=== PATIENT | female | born 1990 | race Caucasian/White ===

== ENCOUNTER 2017-07-19 10:03 | Emergency (ER) | payer SELFPAY ==
[2017-07-19 10:18] VITALS: TEMP 98.1; BMI 32.2
--- NOTE | 2017-07-19 10:40 | PDOC ---
Attending Attestation - Resident Resident Name: Deni Black - HPI HPI: 07/19/17 11:10 Pt presents to the ED complaining of a moderate amount of vaginal bleeding and passing clots. Also complaining of crampy pelvic pain. Denies heavy bleeding, urinary complaints or fever. Her last menstrual period was 5. - Physicial Exam PE: 07/19/17 11:12 Agree with resident exam. PAtient is alert and oriented and in no acute distress. Abdomen is non tender. - Medical Decision Making 07/19/17 11:12 Pt presents to the ED complaining of vaginal bleeding. Differential diagnosis includes menstruation, threatened ab, miscarriage, ectopic . will check CBC to rule out anemia and U preg. will likely discharge home if no anemia and U preg is negative.
--- NOTE | 2017-07-19 11:11 | PDOC ---
History of Present Illness - General Chief Complaint: Vaginal Bleeding Stated Complaint: Vaginal Bleeding Time Seen by Provider: 07/19/17 10:24 History Source: Patient, Family Exam Limitations: No Limitations - History of Present Illness Initial Comments: 07/19/17 11:44 26F with copper IUD placement 3 years ago, LMP on June 14 presents to the ED worrying she might be after passing multiple large clots yesterday and this morning and complaining of lower abdominal pain. Denies dysuria, nausea, vomiting. Past History - Past Medical History Allergies/Adverse Reactions: Allergies Allergy/AdvReac Type Severity Reaction Status Date / Time No Known Allergies Allergy Verified 07/19/17 10:15 Home Medications: Ambulatory Orders NK [No Known Home Medication] 07/19/17 Asthma: No Cancer: No Cardiac Disorders: No COPD: No DVT: No Diabetes: No HTN: No Seizures: No Thyroid Disease: No - Surgical History Cholecystectomy: Yes - Reproductive History Is Patient Now?: No (#): 3 Para: 3 - Suicide/Smoking/Psychosocial Hx Smoking History: Never smoked Have you smoked in the past 12 months: No Information on smoking cessation initiated: No Hx Alcohol Use: No Drug/Substance Use Hx: No Substance Use Type: None Hx Substance Use Treatment: No Review of Systems - Review of Systems Able to Perform ROS?: Yes Is the patient limited Vietnamese proficient: Yes Constitutional: No: Symptoms Reported HEENTM: No: Symptoms Reported Respiratory: No: Symptoms reported Cardiac (ROS): No: Symptoms Reported ABD/GI: Yes: Symptoms Reported, See HPI : No: Symptoms Reported Integumentary: No: Symptoms Reported Neurological: No: Symptoms reported All Other Systems: Reviewed and Negative *Physical Exam - Vital Signs Last Vital Signs Temp Pulse Resp BP Pulse Ox 98.1 F 76 18 119/72 100 07/19/17 10:15 07/19/17 10:15 07/19/17 10:15 07/19/17 10:15 07/19/17 10:15 - Physical Exam General Appearance: Yes: Nourished, Appropriately Dressed. No: Apparent Distress HEENT: positive: EOMI, RENÉE, Normal ENT Inspection Respiratory/Chest: positive: Lungs Clear, Normal Breath Sounds. negative: Chest Tender, Respiratory Distress Cardiovascular: positive: Regular Rhythm, Regular Rate, S1, S2 Female Pelvic Exam: positive: normal external exam, other (5mm tail of IUD protruding from cervical os). negative: cervical os closed Gastrointestinal/Abdominal: positive: Normal Bowel Sounds, Tender (LR and LLQ), Flat, Soft, Decreased BS Musculoskeletal: positive: Normal Inspection. negative: CVA Tenderness Extremity: positive: Normal Capillary Refill, Normal Inspection, Normal Range of Motion Neurologic: positive: Fully Oriented, Alert, Normal Mood/Affect, Normal Response , Motor Strength / ED Treatment Course - LABORATORY CBC & Chemistry Diagram: 07/19/17 10:40 07/19/17 10:40 Medical Decision Making - Medical Decision Making 07/19/17 11:58 26F with copper IUD presents with discharge of clots and abdominal pain. Will get basic labs and test. 07/19/17 14:09 Real time examination of the pelvis utilizing both the transabdominal and transvaginal probes demonstrates the following: The uterus is normal in size measuring 8.2 x 6.1 x 4.8 cm. No uterine masses are seen. There is an IUD within the endometrial cavity, however, it is largely within the lower uterine segment. The endometrium is thickened measuring 1.6 cm and there is an ill- defined fluid collection which could represent an early gestational sac. Correlation with serial beta subunit hCG levels and follow-up ultrasonography is now recommended. The ovaries are normal in size and texture with a right ovarian cyst measuring 1.4 x1.3x1.1cm 07/19/17 14:12 Beta hcg pending 07/19/17 15:36 Dr. Gomez consulted. Updated patient who would like to try and continue the . Will discharge with recommendations *DC/Admit/Observation/Transfer Diagnosis at time of Disposition: IUD failure, - Discharge Dispostion Disposition: HOME Condition at time of disposition: Improved Decision to Admit order: No - Referrals Referrals: Diamond Gifford MD [Primary Care Provider] - Dillon Gomez MD [Staff Physician] - - Patient Instructions Printed Discharge Instructions: DI for Intrauterine Device Removal Additional Instructions: Come back to your doctor, Dr. Moody in exactly 2 days to repeat enzymes and ultrasound. Take vitamins until then. It is very important that you follow up in two days. If you can't meet with either Drs. Moody or Patricia come back to ER. Come back also if you feel pain in your abdomen, discharge, bleeding, weakness or fever. - Post Discharge Activity
[2017-07-19 11:55] LABS: BASO % 0.4 % (0-2.0); EOS % 0.8 % (0-4.5); HEMATOCRIT 41.3 % (32.4-45.2); HEMOGLOBIN 14.2 GM/dL (10.7-15.3); LYMPH % 28.5 % (8-40); MCH 29.8 pg (25.7-33.7); MCHC 34.4 g/dl (32.0-36.0); MEAN CELL VOLUME 86.6 fl (80-96); MEAN PLT VOLUME 9.6 fl (7.5-11.1); MONO % 6.8 % (3.8-10.2); NEUT % 63.5 % (42.8-82.8); PLATELET COUNT 210 K/MM3 (134-434); RBC 4.77 M/mm3 (3.60-5.2); RDW 13.8 % (11.6-15.6); WHITE BLOOD COUNT 6.4 K/mm3 (4.0-10.0)
[2017-07-19 12:07] LABS: HCG,QUALITATIVE URINE POSITIVE
[2017-07-19 12:12] LABS: URINE APPEARANCE CLEAR; URINE BILIRUBIN NEGATIVE (<2.0 mg/dL); URINE BLOOD NEGATIVE (NEGATIVE); URINE COLOR LTYELLOW; URINE GLUCOSE (UA) NEGATIVE (NEGATIVE); URINE KETONE NEGATIVE (NEGATIVE); URINE LEUK ESTERASE NEGATIVE (NEGATIVE); URINE NITRITE NEGATIVE (NEGATIVE); URINE PROTEIN NEGATIVE (NEGATIVE); URINE UROBILINOGEN NEGATIVE mg/dL (0.2-1.0)
[2017-07-19 13:03] LABS: ALBUMIN 3.8 g/dl (3.4-5.0); ANION GAP 9 (8-16); BILIRUBIN,TOTAL 0.4 mg/dL (0.2-1.0); BLOOD UREA NITROGEN 11 mg/dL (7-18); CALCIUM 8.6 mg/dL (8.5-10.1); CHLORIDE 106 mmol/L (98-107); CO2 22 mmol/L (21-32); CREATININE 0.6 mg/dL (0.55-1.02); GLUCOSE,RANDOM 85 mg/dL (74-106); POTASSIUM 3.9 mmol/L (3.5-5.1); SGOT/AST 20 U/L (15-37); SGPT/ALT 40 U/L (12-78); SODIUM 137 mmol/L (136-145); TOT PROT 7.7 g/dl (6.4-8.2)
[2017-07-19 13:04] LABS: ALK PHOS 102 U/L (45-117)
[2017-07-19 16:32] VITALS: BP 115/60; PULSE 69
== END 2017-07-19 16:31 | disposition home or self-care (01) ==
LOC: JER 10:03
DX: O99.89 Other specified diseases and conditions complicating pregnancy, childbirth and the puerperium (principal); T83.89XA Other specified complication of genitourinary prosthetic devices, implants and grafts, initial encounter; Z3A.01 Less than 8 weeks gestation of pregnancy
CPT/HCPCS: 36415; 76817-TC; 76856-TC; 80053; 81003; 84702; 84703; 85025; 87491; 87591; 99285-25

== ENCOUNTER 2017-08-23 13:37 | Emergency (ER) | payer OTHER ==
[2017-08-23 13:47] VITALS: BP 124/76; PULSE 78; TEMP 98.3; BMI 31.2
--- NOTE | 2017-08-23 14:04 | PDOC ---
Attending Attestation - Resident Resident Name: Tatyana Carmona - HPI HPI: 08/23/17 16:14 pt presents to the eD complaining of vaginal bleeding, passing clots. Patient is 8 weeks by dates, with IUD in place. Seen by me in the ED on 07/19 - -had no IUP with a BHCG of 1000. Case was discussed with Dr. Nicole who recommended discharging her home with follow up in 2 days, since this was a desired . Patient returned to the ED on 08/09 with BHCG of 23,000. Still no IUP found on repeat US--only gestational sac. Patient was again discharged home and told to follow up with ob. Patient reports that she saw her OB two weeks ago, who did not identify a clear IUP. Patient returns today complaining of two days of heavy vaginal bleeding and severe pelvic cramping. - Physicial Exam PE: 08/23/17 16:18 Agree with resident exam. Patient is alert and in no acute distress. Abdomen is soft, non distended. Mild suprapubic tenderness. No IUP on transabdominal US , but no free pelvic fluid and negative FAST exam. Moderate blood in the vaginal vault without clots. Os closed. No adnexal tenderness. - Medical Decision Making 08/23/17 16:20 Pt presents to the ED complaining of pelvic pain. Concern for completed AB vs ectopic , given her last BHCG level and the fact that no IUP has been identified during this . PAtient is normotensive and with minimal pain. Will check labs and check transvaginal US. Will discuss case with Dr. Nicole.
[2017-08-23] MEDS ORDERED: ACETAMINOPHEN 500 MG TABLET (FP) PO ONE (15:09)
[2017-08-23] MEDS ORDERED: ACETAMINOPHEN 325 MG TABLET (FP) ONE (15:13)
[2017-08-23 15:46] LABS: BASO % 0.6 % (0-2.0); EOS % 0.7 % (0-4.5); HEMATOCRIT 39.9 % (32.4-45.2); HEMOGLOBIN 13.8 GM/dL (10.7-15.3); LYMPH % 18.9 % (8-40); MCH 29.8 pg (25.7-33.7); MCHC 34.5 g/dl (32.0-36.0); MEAN CELL VOLUME 86.4 fl (80-96); MEAN PLT VOLUME 9.2 fl (7.5-11.1); MONO % 5.1 % (3.8-10.2); NEUT % 74.7 % (42.8-82.8); PLATELET COUNT 216 K/MM3 (134-434); RBC 4.61 M/mm3 (3.60-5.2); RDW 13.3 % (11.6-15.6); WHITE BLOOD COUNT 10.7 K/mm3 (4.0-10.0)
--- NOTE | 2017-08-23 16:09 | PDOC ---
History of Present Illness - General Chief Complaint: Vaginal Bleeding Stated Complaint: VAGINAL BLEEDING (8 WKS ) Time Seen by Provider: 08/23/17 13:56 - History of Present Illness Initial Comments: 26yo F with no significant past medical history presenting to the ED with vaginal bleeding. Patient reports that she is currently six weeks . Amount of blood has been significant as she has used 9 pads for each of the past two days and she has noticed clots. She also endorses suprapubic pain and dysuria. One episode of diarrhea yesterday. Patient was last seen in the ED on for vaginal bleeding. Transvaginal ultrasound at that time did not confirm an intrauterine . Patient followed up with her cash accountant, Dr. Gomez, after that ED visit. Denies fevers, chills, chest pain, shortness of breath, nausea, or vomiting. 08/23/17 16:00 Past History - Past Medical History Allergies/Adverse Reactions: Allergies Allergy/AdvReac Type Severity Reaction Status Date / Time No Known Allergies Allergy Verified 08/23/17 13:47 Home Medications: Ambulatory Orders Cephalexin [Keflex] 500 mg PO Q6H #20 capsule 08/09/17 Asthma: No Cancer: No Cardiac Disorders: No COPD: No DVT: No Diabetes: No HTN: No Seizures: No Thyroid Disease: No - Surgical History Cholecystectomy: Yes - Reproductive History Is Patient Now?: Yes (#): 3 Para: 3 - Suicide/Smoking/Psychosocial Hx Smoking History: Never smoked Have you smoked in the past 12 months: No Information on smoking cessation initiated: No Hx Alcohol Use: No Drug/Substance Use Hx: No Substance Use Type: None Hx Substance Use Treatment: No Review of Systems - Review of Systems Comments:: Constitutional: no fever, no chills Cardiovascular: no chest pain, no palpitations Respiratory: no cough, no shortness of breath Gastrointestinal: positive for diarrhea, no abdominal pain, no nausea, no vomiting, no constipation Genitourinary: positive for dysuria, no frequency Neurologic: no headache, no dizziness *Physical Exam - Vital Signs Last Vital Signs Temp Pulse Resp BP Pulse Ox 98.3 F 78 17 124/76 100 08/23/17 13:44 08/23/17 13:44 08/23/17 13:44 08/23/17 13:44 08/23/17 13:44 - Physical Exam Comments: General: Awake, alert, and fully oriented, in no acute distress Head: No signs of trauma Eyes: EOMI, sclera anicteric ENT: moist mucus membranes, Neck: Normal ROM, supple, no lymphadenopathy, JVD, or masses Lungs: Lungs clear, Normal breath sounds Cardio: Regular rhythm, S1 and S2 present, no murmurs, rubs, or gallops Abdomen: Tender to palpation in the suprapubic area, Soft, normal bowel sounds. No guarding, no rebound, no masses Extremities: Normal range of motion, No cords or tenderness SKIN: Warm, Dry, normal turgor, no rashes or lesions noted Neurologic: Cranial nerves II through XII grossly intact. Normal speech ED Treatment Course - LABORATORY CBC & Chemistry Diagram: 08/23/17 15:15 08/23/17 15:15 - ADDITIONAL ORDERS Additional order review: 08/23/17 15:15 RBC 4.61 MCV 86.4 MCHC 34.5 RDW 13.3 MPV 9.2 Neutrophils % 74.7 D Lymphocytes % 18.9 D Monocytes % 5.1 Eosinophils % 0.7 Basophils % 0.6 - RADIOLOGY Radiology Studies Ordered: Category Date Time Status TRANSVAGINAL US PREG [US] Stat Ultrasound 08/23/17 15:53 Ordered - Medications Given in the ED: ED Medications Discontinued Medications Generic Name Dose Route Start Last Admin Trade Name Andiq PRN Reason Stop Dose Admin Acetaminophen 1,000 mg 08/23/17 15:09 08/23/17 15:15 Tylenol - PO 08/23/17 15:10 1,000 mg ONCE ONE Administration Medical Decision Making - Medical Decision Making 26yo currently 6 weeks patient presenting to the ED with reported significant amount of vaginal bleeding. Differential includes threatened , ectopic , subchorionic hemorrhage. Workup will included CBC, CMP, b-hcg, transvaginal ultrasound, pelvic exam. Tylenol 1000 po for pain. Type and Screen from previous visit O positive. Vital Signs Temp Pulse Resp BP Pulse Ox 98.3 F 78 17 124/76 100 08/23/17 13:44 08/23/17 13:44 08/23/17 13:44 08/23/17 13:44 08/23/17 13:44 08/23/17 16:04 Bedside Ultrasound: IUP not visualized. No free fluid in the abdomen Pelvic exam: blood in the vault, no products of conception or lesions, Cervix is closed 08/23/17 16:14 Beta-hcg now 11,698 down from 23,250 on 08/09/17. Normal H&H. 08/23/17 16:55 Laboratory Tests 08/23/17 08/23/17 08/23/17 15:15 15:15 16:05 WBC 10.7 H RBC 4.61 Hgb 13.8 Hct 39.9 MCV 86.4 MCH 29.8 MCHC 34.5 RDW 13.3 Plt Count 216 MPV 9.2 Absolute Neuts (auto) 8.0 Neutrophils % 74.7 D Lymphocytes % 18.9 D Monocytes % 5.1 Eosinophils % 0.7 Basophils % 0.6 Nucleated RBC % 0 Sodium 141 Potassium 4.3 Chloride 109 H Carbon Dioxide 23 Anion Gap 9 BUN 8 Creatinine 0.6 Creat Clearance w eGFR > 60 Random Glucose 80 Calcium 8.7 Total Bilirubin 0.4 AST 16 ALT 32 Alkaline Phosphatase 116 D Total Protein 7.3 Albumin 3.8 Beta HCG, Quant 37158.9 Urine Color Ltyellow Urine Appearance Slcloudy Urine pH 6.0 Ur Specific [place] 1.003 Urine Protein Negative Urine Glucose (UA) Negative Urine Ketones Negative Urine Blood 3+ H Urine Nitrite Negative Urine Bilirubin Negative Urine Urobilinogen Negative Ur Leukocyte Esterase Negative Urine WBC (Auto) 1 Urine RBC (Auto) 105 Ur Epithelial Cells Rare Urine Bacteria Rare Discussed case with Dr. Gomez regarding likely intrauterine demise. Recommended patient to follow-up at outpatient clinic for Sunday. Discharging patient with expectant management. 08/23/17 18:48 *DC/Admit/Observation/Transfer Diagnosis at time of Disposition: Vaginal bleeding - Discharge Dispostion Disposition: HOME Condition at time of disposition: Stable - Referrals Referrals: Dillon Gomez MD [Primary Care Provider] - - Patient Instructions Printed Discharge Instructions: DI for Vaginal Bleeding During Additional Instructions: Follow-up with your professor of practice, Dr. Gomez, on Sunday. You need to call and set up an appointment. Return to the Emergency Department if: heavy bleeding (more than two pads per hour for two hours), you have severe pain, lightheadedness, shortness of breath , high fever, or any other concerning symptoms. - Post Discharge Activity
[2017-08-23 16:17] LABS: ALBUMIN 3.8 g/dl (3.4-5.0); ANION GAP 9 (8-16); BILIRUBIN,TOTAL 0.4 mg/dL (0.2-1.0); BLOOD UREA NITROGEN 8 mg/dL (7-18); CALCIUM 8.7 mg/dL (8.5-10.1); CHLORIDE 109 mmol/L (98-107); CO2 23 mmol/L (21-32); CREATININE 0.6 mg/dL (0.55-1.02); GLUCOSE,RANDOM 80 mg/dL (74-106); POTASSIUM 4.3 mmol/L (3.5-5.1); SGOT/AST 16 U/L (15-37); SGPT/ALT 32 U/L (12-78); SODIUM 141 mmol/L (136-145); TOT PROT 7.3 g/dl (6.4-8.2)
[2017-08-23 16:26] LABS: URINE APPEARANCE SLCLOUDY; URINE BILIRUBIN NEGATIVE (<2.0 mg/dL); URINE COLOR LTYELLOW; URINE GLUCOSE (UA) NEGATIVE (NEGATIVE); URINE KETONE NEGATIVE (NEGATIVE); URINE LEUK ESTERASE NEGATIVE (NEGATIVE); URINE NITRITE NEGATIVE (NEGATIVE); URINE PROTEIN NEGATIVE (NEGATIVE); URINE UROBILINOGEN NEGATIVE mg/dL (0.2-1.0)
[2017-08-23 16:31] LABS: EPI CELLS RARE /HPF (FEW); URINE BACTERIA RARE /hpf (NONE SEEN)
[2017-08-23 16:36] LABS: ALK PHOS 116 U/L (45-117)
== END 2017-08-23 19:19 | disposition home or self-care (01) ==
LOC: JER 13:37
DX: O26.891 Other specified pregnancy related conditions, first trimester (principal); O20.8 Other hemorrhage in early pregnancy; Z3A.08 8 weeks gestation of pregnancy; Z97.5 Presence of (intrauterine) contraceptive device
CPT/HCPCS: 36415; 76817-TC; 80053; 81003; 81015; 84702; 85025; 99283-25

== ENCOUNTER 2020-03-26 21:36 | Emergency (ER) | payer OTHER ==
[2020-03-26 21:44] VITALS: BMI 28.9
[2020-03-26] MEDS ORDERED: SODIUM CHLORIDE 0.9% 500 ML INFUS.BAG IV ONE (22:39)
[2020-03-26] MEDS ORDERED: MAG HYDROX/AL HYDROX/SIMETH 30 ML UNIT-DOSE CUP PO ONE (22:41)
[2020-03-26] MEDS ORDERED: FAMOTIDINE 20 MG/50 ML IVPB 20 MG/50 ML MG IVPB ONE ×2 (22:41→23:18)
[2020-03-26] MEDS ORDERED: ACETAMINOPHEN 1000 MG/100 ML VIAL (NON FORMULARY) IVPB ONE (22:42)
[2020-03-26] MEDS ORDERED: ACETAMINOPHEN INJECTION 100 ML IVPB ONE (23:17)
[2020-03-26] MEDS ORDERED: MAG HYDROX/AL HYDROX/SIMETH 30 ML UNIT-DOSE CUP ONE (23:17)
[2020-03-26 23:21] LABS: BASO % 0.8 % (0-2.0); EOS % 0.2 % (0-4.5); HEMATOCRIT 42.8 % (32.4-45.2); HEMOGLOBIN 14.7 GM/dL (10.7-15.3); LYMPH % 4.6 % (8-40); MCH 29.3 pg (25.7-33.7); MCHC 34.4 g/dl (32.0-36.0); MEAN CELL VOLUME 85.2 fl (80-96); MEAN PLT VOLUME 8.9 fl (7.5-11.1); MONO % 3.9 % (3.8-10.2); NEUT % 90.5 % (42.8-82.8); PLATELET COUNT 240 K/MM3 (134-434); RBC 5.03 M/mm3 (3.60-5.2); RDW 13.2 % (11.6-15.6); WHITE BLOOD COUNT 11.6 K/mm3 (4.0-10.0)
[2020-03-26 23:24] LABS: INR 0.99 (0.83-1.09)
[2020-03-26 23:36] LABS: POTASSIUM 3.7 mmol/L (3.5-5.1)
[2020-03-26 23:37] LABS: ALBUMIN 4.1 g/dl (3.4-5.0); CALCIUM 8.9 mg/dL (8.5-10.1)
[2020-03-26 23:39] LABS: BLOOD UREA NITROGEN 15.9 mg/dL (7-18)
[2020-03-26 23:42] LABS: BILIRUBIN,TOTAL 0.7 mg/dL (0.2-1); CREATININE 0.8 mg/dL (0.55-1.3); TOT PROT 7.7 g/dl (6.4-8.2)
[2020-03-26 23:55] LABS: EPI CELLS >36 /uL (0-25.1); HYALINE CASTS 7 /uL (0-3.1); PH,URINE >= 9.0 (5.0-8.0); URINE APPEARANCE CLOUDY; URINE BACTERIA 3315 /uL (0-1359); URINE BILIRUBIN 1+ (NEGATIVE); URINE COLOR DK YELLOW; URINE GLUCOSE (UA) NEGATIVE (NEGATIVE); URINE KETONE 1+ (NEGATIVE); URINE LEUK ESTERASE TRACE (NEGATIVE); URINE NITRITE NEGATIVE (NEGATIVE); URINE PROTEIN 2+ (NEGATIVE); URINE RBC 12 /uL (0-23.9); URINE WBC 14 /uL (0-25.8)
[2020-03-27] MEDS ORDERED: LACTATED RINGERS SOLUTION 1000 ML INFUS.BAG IV ONE (00:15)
[2020-03-27 02:55] VITALS: BP 130/82; PULSE 84; TEMP 98.4
== END 2020-03-27 02:49 | disposition home or self-care (01) ==
LOC: JER 21:36
PROC: 3E0333Z Introduction of Anti-inflammatory into Peripheral Vein, Percutaneous Approach (ICD-10-PCS; principal; 2020-03-26)
PROC: 3E033GC Introduction of Other Therapeutic Substance into Peripheral Vein, Percutaneous Approach (ICD-10-PCS; 2020-03-26)
DX: K76.0 Fatty (change of) liver, not elsewhere classified (principal); R74.01 Elevation of levels of liver transaminase levels; R11.10 Vomiting, unspecified
CPT/HCPCS: 36415; 71046-TC-FY; 74177-TC; 76705-TC; 80053; 81003; 83690; 84703; 85025; 85610; 93005; 93010; 99285-25; J0131; Q9967

== ENCOUNTER 2021-11-24 06:18 | Inpatient (IN) | payer OTHER ==
[2021-11-24] MEDS ORDERED: CITRIC ACID/SODIUM CITRATE 30 ML UNIT-DOSE CUP PO ONE (06:46)
[2021-11-24] MEDS ORDERED: ELECTROLYTE-148 SOLN 1,000 ML IV SCH (07:00)
[2021-11-24 07:37] VITALS: BMI 34.4
[2021-11-24] MEDS ORDERED: WITCH HAZEL 50% (TUCKS) 40 PAD/JAR PAD TP PRN (08:52)
[2021-11-24] MEDS ORDERED: BENZOCAINE 28 GM HEMORRHOIDAL OINTMENT TP PRN (08:52)
[2021-11-24] MEDS ORDERED: IBUPROFEN 800 MG/8 ML IJ IVPB PRN (08:52)
[2021-11-24] MEDS ORDERED: ACETAMINOPHEN 325 MG TABLET (FP) PO PRN (08:52)
[2021-11-24] MEDS ORDERED: METHYLERGONOVINE MALEATE 0.2 MG/1 ML AMP IM PRN (08:52)
[2021-11-24] MEDS ORDERED: BENZOCAINE 20% 57 GM BOTTLE TP PRN (08:52)
[2021-11-24] MEDS ORDERED: ONDANSETRON 4 MG/2 ML VIAL IVPUSH PRN (09:10)
[2021-11-24] MEDS: FERROUS SO4 325 MG TABLET (FP) PO SCH ×2 (10:28→22:00)
[2021-11-24] MEDS: PRENATAL VITAMINS W/ FOLIC ACID TABLET (FP) PO SCH (10:29)
[2021-11-24] MEDS ORDERED: IBUPROFEN 800 MG/8 ML IJ IVPB ONE (10:30)
[2021-11-24] MEDS ORDERED: ACETAMINOPHEN INJECTION 100 ML IVPB ONE (12:20)
[2021-11-24] MEDS ORDERED: HYDROmorphone *PCA* 10MG/50ML DISP.SYRIN ONE (12:41)
[2021-11-24] MEDS ORDERED: OXYTOCIN 20 UNITS in 0.9% NS 20 UNIT/1,000 ML INFUS.BAG IV ONE (12:44)
[2021-11-24] MEDS ORDERED: ACETAMINOPHEN 1000 MG/100 ML BAG IVPB ONE (12:45)
[2021-11-24] MEDS ORDERED: HYDROmorphone *PCA* 10MG/50ML DISP.SYRIN PCA SCH (12:45)
[2021-11-24] MEDS: OXYTOCIN 20 UNITS in 0.9% NS 20 UNIT/1,000 ML INFUS.BAG IV SCH ×2 (12:55→20:18)
[2021-11-24] MEDS ORDERED: oxyCODONE HCL 5 MG TABLET PO PRN (20:52)
[2021-11-25] MEDS: SIMETHICONE 80 MG TAB.CHEW (FP) PO PRN ×4 (05:48→21:05)
[2021-11-25 08:12] LABS: BASO % 0.1 % (0-2.0); EOS % 0.9 % (0-4.5); HEMATOCRIT 33.9 % (32.4-45.2); HEMOGLOBIN 11.9 GM/dL (10.7-15.3); MCH 31.9 pg (25.7-33.7); MCHC 35.1 g/dl (32.0-36.0); MEAN CELL VOLUME 90.9 fl (80-96); MEAN PLT VOLUME 8.6 fl (7.5-11.1); MONO % 5.7 % (3.8-10.2); NEUT % 85.3 % (42.8-82.8); PLATELET COUNT 181 10^3/uL (134-434); RBC 3.73 M/mm3 (3.60-5.2); RDW 13.4 % (11.6-15.6); WHITE BLOOD COUNT 9.2 K/mm3 (4.0-10.0)
[2021-11-25] MEDS ORDERED: BISACODYL 10 MG SUPP.RECT RC PRN (08:52)
[2021-11-25] MEDS: IBUPROFEN 600 MG TABLET (FP) PO PRN ×3 (09:28→21:05)
[2021-11-25] MEDS: PRENATAL VITAMINS W/ FOLIC ACID TABLET (FP) PO SCH (09:28)
[2021-11-25] MEDS: FERROUS SO4 325 MG TABLET (FP) PO SCH ×2 (09:28→21:05)
[2021-11-25] MEDS ORDERED: DIPHTH,PERTUSS(ACELL),TET 0.5 ML DISP.SYRIN IM ONE (10:00)
[2021-11-25] MEDS ORDERED: FLU VACC QS2022-23(6MOS UP)/PF 60 MCG/0.5 ML SYRINGE IM ONE (10:00)
[2021-11-26] MEDS: IBUPROFEN 600 MG TABLET (FP) PO PRN ×2 (08:54→20:21)
[2021-11-26] MEDS: PRENATAL VITAMINS W/ FOLIC ACID TABLET (FP) PO SCH (09:51)
[2021-11-26] MEDS: FERROUS SO4 325 MG TABLET (FP) PO SCH ×2 (09:51→21:01)
[2021-11-26] MEDS: SIMETHICONE 80 MG TAB.CHEW (FP) PO PRN (20:21)
[2021-11-26 22:02] VITALS: RESP 16
[2021-11-27 09:23] LABS: BASO % 0.3 % (0-2.0); EOS % 4.7 % (0-4.5); HEMOGLOBIN 11.2 GM/dL (10.7-15.3); LYMPH % 18.8 % (8-40); MCH 30.5 pg (25.7-33.7); MCHC 33.1 g/dl (32.0-36.0); MEAN CELL VOLUME 91.9 fl (80-96); MEAN PLT VOLUME 9.2 fl (7.5-11.1); MONO % 7.4 % (3.8-10.2); NEUT % 68.8 % (42.8-82.8); PLATELET COUNT 209 10^3/uL (134-434); RBC 3.69 M/mm3 (3.60-5.2); RDW 13.3 % (11.6-15.6); WHITE BLOOD COUNT 6.7 K/mm3 (4.0-10.0)
[2021-11-27] MEDS: PRENATAL VITAMINS W/ FOLIC ACID TABLET (FP) PO SCH (09:29)
[2021-11-27] MEDS: FERROUS SO4 325 MG TABLET (FP) PO SCH (09:29)
[2021-11-27 11:35] VITALS: BP 120/80; PULSE 72; TEMP 98
== END 2021-11-27 13:50 | disposition home or self-care (01) | DRG 540 ==
LOC: JLDR 06:18 → J3W 14:15
PROVIDERS: ADMIT Obstetrics & Gynecology; ATTEND Obstetrics & Gynecology
PROC: 10D00Z1 Extraction of Products of Conception, Low, Open Approach (ICD-10-PCS; principal; 2021-11-24)
PROC: 0UL70ZZ Occlusion of Bilateral Fallopian Tubes, Open Approach (ICD-10-PCS; 2021-11-24)
DX: O82 Encounter for cesarean delivery without indication (principal); O34.211 Maternal care for low transverse scar from previous cesarean delivery; Z30.2 Encounter for sterilization; Z3A.39 39 weeks gestation of pregnancy; Z37.0 Single live birth
CPT/HCPCS: 36415; 85025; 86850; 86900; 86901; 88302-TC; 88307-TC; 90715; G0008; Q2036